=== PATIENT | male | born 1965 | race Caucasian/White ===

== ENCOUNTER 2020-07-14 02:27 | Emergency (ER) | payer MEDICAID ==
[~2020-07-14] VITALS: Ht 188 cm; Wt 129.5 kg
[2020-07-14] MEDS ORDERED: ondansetron/PF 4mg/2ml inj IV ONE ×2 (02:45→04:10)
[2020-07-14 02:47] LABS: CLARITY,URINE CLEAR (Clear); COLOR,URINE YELLOW (Yellow); GLUCOSE, URINE NEGATIVE (Neg); KETONES,URINE NEGATIVE (Neg); LEUKOCYTE ESTERASE ,URINE NEGATIVE (Neg); NITRITES, URINE NEGATIVE (Neg); OCCULT BLOOD,URINE LARGE (Neg); PROTEIN,URINE NEGATIVE (Neg); UROBILINOGEN,URINE 0.2 E.U/dL (0.2-1.0)
[2020-07-14 02:47] LABS: BASOPHILS # (AUTO) 0.1 X10'3 (0-0.2); EOSINOPHILS # (AUTO) 0.1 X10'3 (0-0.9); EOSINOPHILS % (AUTO) 0.8 % (0-6); HEMATOCRIT 38.4 % (42.0-52.0); HEMOGLOBIN 13.2 g/dl (14.0-17.9); LYMPHOCYTES % (AUTO) 12.9 % (21-51); MEAN CORPUSCULAR HEMOGLOBIN 29.8 PG (27.0-31.0); MEAN CORPUSCULAR HGB CONC 34.2 g/dL (33.0-36.5); MEAN CORPUSCULAR VOLUME 87.1 FL (78-98); MEAN PLATELET VOLUME 7.4 FL (7.4-10.4); MONOCYTES # (AUTO) 0.5 X10'3 (0-0.9); MONOCYTES % (AUTO) 6.4 % (2-12); NEUTROPHILS # (AUTO) 6.3 X10'3 (1.8-7.7); NEUTROPHILS % (AUTO) 78.9 % (42-75); PLATELET COUNT 323 X10'3 (140-440); RED BLOOD COUNT 4.41 X10'6 (4.70-6.10); WHITE BLOOD COUNT 7.9 X10'3 (4.5-11.0)
[2020-07-14 02:48] LABS: UA COLLECTION TYPE CLN CATCH MIDSTREAM
[2020-07-14 02:52] LABS: BACTERIA,URINE FEW /HPF (Neg); SQUAMOUS EPITHELIAL CELL,UR MODERATE /LPF (FEW); WBC,URINE 0-4 /HPF (0-4)
[2020-07-14 02:53] LABS: MUCUS STRANDS FEW /LPF (Neg)
[2020-07-14 03:05] LABS: ALANINE AMINOTRANSFERASE 22 U/L (12-78); ALBUMIN 3.6 G/DL (3.4-5.0); ALBUMIN/GLOBULIN RATIO 0.9 (1.1-1.5); ALKALINE PHOSPHATASE 105 IU/L (46-116); ANION GAP 6 (8-16); ASPARTATE AMINO TRANSFERASE 15 U/L (10-37); BILIRUBIN,TOTAL 0.4 MG/DL (0.1-1.0); BLOOD UREA NITROGEN 11 MG/DL (7-18); BUN/CREATININE RATIO 8.9 (5.4-32.0); CALCIUM 8.7 MG/DL (8.5-10.1); CHLORIDE 104 MMOL/L (99-107); CREATININE 1.24 MG/DL (0.60-1.10); GLUCOSE 131 MG/DL (70-104); LIPASE 118 U/L (73-393); POTASSIUM 3.8 MMOL/L (3.5-5.1); SODIUM 137 MMOL/L (135-145); TOTAL CARBON DIOXIDE 26.7 MMOL/L (24-32); TOTAL PROTEIN 7.5 G/DL (6.4-8.2); eGFR 61 ML/MIN
[2020-07-14] MEDS ORDERED: iohexol 300mg/ml 100ml inj. ONE (03:13)
[2020-07-14 03:17] VITALS: BP 133/68
[2020-07-14] MEDS ORDERED: ketorolac tromethamine 15mg/ml inj. IV ONE (03:50)
[2020-07-14] MEDS ORDERED: oxyCODONE/APAP 10/325mg tablet PO ONE (04:10)
[2020-07-14] MEDS ORDERED: OXYC-145 PO (04:12)
[2020-07-14] MEDS ORDERED: ONDA4TAB6 PO (04:12)
[2020-07-14] MEDS ORDERED: IBUP-1985 PO (04:22)
[2020-07-15] MEDS ORDERED: FLO0.4C PO (18:07)
== END 2020-07-14 04:36 | disposition home or self-care (01) ==
LOC: ER 02:28
DX: N20.0 Calculus of kidney (principal); G89.29 Other chronic pain; Z59.0 Homelessness; Z98.890 Other specified postprocedural states; Z88.0 Allergy status to penicillin; Z88.6 Allergy status to analgesic agent; Z79.899 Other long term (current) drug therapy
CPT/HCPCS: 36415; 74177; 80053; 81001; 83690; 85025; 93005; 96374; 96375; 96376; 99285; J1885; J2405; Q9967

== ENCOUNTER 2020-07-15 16:06 | Emergency (ER) | payer MEDICAID ==
[~2020-07-15] VITALS: Ht 188 cm; Wt 126.4 kg
[~2020-07-15 16:06] MED LIST: IBUP-1985 PO; ONDA4TAB6 PO; OXYC-145 PO
[2020-07-15] MEDS ORDERED: ondansetron/PF 4mg/2ml inj IV ONE (16:45)
[2020-07-15] MEDS ORDERED: ketorolac tromethamine 15mg/ml inj. IV ONE (16:45)
[2020-07-15] MEDS ORDERED: morphine 4 MG/ML inj SYRINge IV ONE (16:45)
[2020-07-15] MEDS ORDERED: normal saline 1000ML IV soln IVB ONE (16:45)
[2020-07-15 17:54] LABS: BASOPHILS % (AUTO) 0.6 % (0-1); EOSINOPHILS # (AUTO) 0.2 X10'3 (0-0.9); EOSINOPHILS % (AUTO) 2.3 % (0-6); HEMATOCRIT 36.3 % (42.0-52.0); HEMOGLOBIN 12.5 g/dl (14.0-17.9); LYMPHOCYTES % (AUTO) 12.2 % (21-51); MEAN CORPUSCULAR HEMOGLOBIN 29.9 PG (27.0-31.0); MEAN CORPUSCULAR HGB CONC 34.3 g/dL (33.0-36.5); MEAN CORPUSCULAR VOLUME 87.1 FL (78-98); MEAN PLATELET VOLUME 7.4 FL (7.4-10.4); MONOCYTES # (AUTO) 0.7 X10'3 (0-0.9); MONOCYTES % (AUTO) 8.6 % (2-12); NEUTROPHILS # (AUTO) 6.5 X10'3 (1.8-7.7); NEUTROPHILS % (AUTO) 76.3 % (42-75); PLATELET COUNT 303 X10'3 (140-440); RED BLOOD COUNT 4.17 X10'6 (4.70-6.10); RED CELL DISTRIBUTION WIDTH 13.2 % (11.5-14.5); WHITE BLOOD COUNT 8.5 X10'3 (4.5-11.0)
[2020-07-15 18:00] LABS: ALANINE AMINOTRANSFERASE 16 U/L (12-78); ALBUMIN 3.4 G/DL (3.4-5.0); ALBUMIN/GLOBULIN RATIO 0.9 (1.1-1.5); ALKALINE PHOSPHATASE 95 IU/L (46-116); ANION GAP 5 (8-16); ASPARTATE AMINO TRANSFERASE 11 U/L (10-37); BILIRUBIN,TOTAL 0.5 MG/DL (0.1-1.0); BLOOD UREA NITROGEN 19 MG/DL (7-18); BUN/CREATININE RATIO 11.3 (5.4-32.0); CALCIUM 8.7 MG/DL (8.5-10.1); CHLORIDE 103 MMOL/L (99-107); CREATININE 1.68 MG/DL (0.60-1.10); GLUCOSE 105 MG/DL (70-104); POTASSIUM 3.9 MMOL/L (3.5-5.1); SODIUM 138 MMOL/L (135-145); TOTAL CARBON DIOXIDE 29.7 MMOL/L (24-32); TOTAL PROTEIN 7.4 G/DL (6.4-8.2); eGFR 43 ML/MIN
[2020-07-15] MEDS ORDERED: FLO0.4C PO (18:07)
[2020-07-15 18:11] LABS: CLARITY,URINE CLEAR (Clear); COLOR,URINE YELLOW (Yellow); GLUCOSE, URINE NEGATIVE (Neg); KETONES,URINE NEGATIVE (Neg); LEUKOCYTE ESTERASE ,URINE NEGATIVE (Neg); NITRITES, URINE NEGATIVE (Neg); OCCULT BLOOD,URINE TRACE-LYSED (Neg); PROTEIN,URINE NEGATIVE (Neg); UA COLLECTION TYPE CLN CATCH MIDSTREAM; UROBILINOGEN,URINE 0.2 E.U/dL (0.2-1.0)
[2020-07-15 18:18] LABS: BACTERIA,URINE NONE SEEN /HPF (Neg); MUCUS STRANDS MODERATE /LPF (Neg); RBC,URINE 0-2 /HPF (0-2); SQUAMOUS EPITHELIAL CELL,UR NONE SEEN /LPF (FEW); WBC,URINE 0-4 /HPF (0-4)
[2020-07-15] MEDS ORDERED: tamsulosin 0.4mg capsule PO ONE (18:30)
[2020-07-15 18:49] VITALS: BP 149/76
[2020-07-15] MEDS ORDERED: tamsulosin 0.4mg capsule PO SCH (21:00)
== END 2020-07-15 18:40 | disposition home or self-care (01) ==
LOC: ER 16:06
DX: N23 Unspecified renal colic (principal); G89.29 Other chronic pain; Z98.890 Other specified postprocedural states; Z59.0 Homelessness; Z88.0 Allergy status to penicillin; Z88.8 Allergy status to other drugs, medicaments and biological substances; Z79.899 Other long term (current) drug therapy
CPT/HCPCS: 36415; 76775; 80053; 81001; 85025; 96361; 96374; 96375; 99284; J1885; J2270; J2405; J7030

== ENCOUNTER 2020-07-22 18:09 | Emergency (ER) | payer MEDICAID ==
[~2020-07-22] VITALS: Ht 188 cm; Wt 133.5 kg
[~2020-07-22 18:09] MED LIST changes: +FLO0.4C PO
[2020-07-22 19:23] LABS: CLARITY,URINE SLIGHTLY CLOUDY (Clear); COLOR,URINE YELLOW (Yellow); GLUCOSE, URINE NEGATIVE (Neg); KETONES,URINE NEGATIVE (Neg); LEUKOCYTE ESTERASE ,URINE TRACE (Neg); NITRITES, URINE NEGATIVE (Neg); OCCULT BLOOD,URINE LARGE (Neg); PROTEIN,URINE 30 mg/dl (Neg); UA COLLECTION TYPE CLN CATCH MIDSTREAM; UROBILINOGEN,URINE 0.2 E.U/dL (0.2-1.0)
--- NOTE | 2020-07-22 19:23 | NUR ---
Dr. Zepeda is with the patient at this time.
[2020-07-22 19:31] LABS: BACTERIA,URINE 1+ /HPF (Neg); RBC,URINE 50-100 /HPF (0-2); SQUAMOUS EPITHELIAL CELL,UR FEW /LPF (FEW); WBC,URINE 30-50 /HPF (0-4)
[2020-07-22] MEDS ORDERED: CIPR-230 PO (20:24)
[2020-07-22] MEDS ORDERED: ciprofloxacin 250mg tablet PO ONE (20:25)
[2020-07-22 20:45] VITALS: BP 150/85
== END 2020-07-22 20:44 | disposition home or self-care (01) ==
LOC: ER 18:10
DX: N39.0 Urinary tract infection, site not specified (principal); E11.9 Type 2 diabetes mellitus without complications; G89.29 Other chronic pain; Z87.442 Personal history of urinary calculi; Z98.890 Other specified postprocedural states; Z59.0 Homelessness; Z88.0 Allergy status to penicillin; Z88.8 Allergy status to other drugs, medicaments and biological substances; Z79.899 Other long term (current) drug therapy
CPT/HCPCS: 81001; 87088; 99283

== ENCOUNTER 2020-10-17 12:09 | Emergency (ER) | payer MEDICAID ==
[~2020-10-17] VITALS: Ht 188 cm; Wt 132.0 kg
[~2020-10-17 12:09] MED LIST changes: -FLO0.4C PO
[2020-10-17 12:29] VITALS: BP 139/89
[2020-10-17] MEDS ORDERED: acetaminophen w/codeine (30MG) #3 tablet PO ONE (12:35)
[2020-10-17] MEDS ORDERED: ACET1TAB25 PO (12:51)
[2020-10-17] MEDS ORDERED: ROBCFL PO (12:51)
--- NOTE | 2020-10-19 09:41 | NUR ---
PT CALLED AND NOTIFIED THAT STREP CULTURE WAS POSITIVE AND THAT A NEW MEDICATION HAS BEEN ORDERED. PT REQUESTED THAT RX BE CALLED INTO [facility] ON [address] PREDNISONE 20MG, 3 TABS PO DAILY x5 DAYS, NO REFILLS CALLED INTO [facility] REQUESTED
== END 2020-10-17 13:22 | disposition home or self-care (01) ==
LOC: ER 12:09
DX: U07.1 COVID-19 (principal); Z87.442 Personal history of urinary calculi; M54.9 Dorsalgia, unspecified; G89.29 Other chronic pain; Z88.0 Allergy status to penicillin; Z79.899 Other long term (current) drug therapy; Z59.0 Homelessness
CPT/HCPCS: 87081; 87880; 99283

== ENCOUNTER 2020-11-18 07:18 | Emergency (ER) | payer MEDICAID ==
[~2020-11-18] VITALS: Ht 188 cm; Wt 127.3 kg
[2020-11-18] MEDS ORDERED: ACET-1025 PO (08:04)
[2020-11-18] MEDS ORDERED: acetaminophen 325mg tablet PO ONE (08:05)
== END 2020-11-18 08:44 | disposition home or self-care (01) ==
LOC: ER 07:19
DX: J39.2 Other diseases of pharynx (principal); E11.9 Type 2 diabetes mellitus without complications; G89.29 Other chronic pain; Z87.442 Personal history of urinary calculi; Z98.890 Other specified postprocedural states; Z86.16 Personal history of COVID-19; Z59.0 Homelessness; Z88.0 Allergy status to penicillin; Z88.8 Allergy status to other drugs, medicaments and biological substances; Z79.899 Other long term (current) drug therapy
CPT/HCPCS: 87081; 87880; 99283

== ENCOUNTER 2021-09-01 08:19 | Outpatient (CLI) | payer MEDICAID ==
[~2021-09-01 08:19] MED LIST changes: +ACET-1025 PO
[2021-09-01 08:47] LABS: ABG BASE EXCESS 0.1 mmol/L (-2.0-2.0); ABG HCO3 24.2 mmol/L (22.0-26.0); ABG OXYGEN SATURATION 96.3 % (94-97); ABG PCO2 (T) 37.7 mmHg (35.0-48.0); ABG PO2 (T) 83.8 mmHg (75.0-100.0); ALLEN'S TEST POSITIVE; FCOHb 0.3 % (0.0-3.9); FMetHb 0.3 % (0.0-1.5); FO2Hb 95.7 % (94-97); TOTAL HEMOGLOBIN 13.7 G/dl (14.0-18.0)
== END 2021-09-01 23:59 | disposition home or self-care (01) ==
LOC: RT 08:19
PROVIDERS: ATTEND Student in an Organized Health Care Education/Training Program
DX: R05.9 Cough, unspecified (principal)
CPT/HCPCS: 36600; 82803; 85018; 94010; 94727; 94729

== ENCOUNTER 2025-04-16 10:21 | Emergency (ER) | payer MEDICAID ==
[~2025-04-16] VITALS: Ht 188 cm; Wt 133.4 kg
--- NOTE | 2025-04-16 11:05 | Physician Documentation ---
History of Present Illness General Chief Complaint: Foot pain Stated Complaint: L FOOT PAIN Time Seen by MD: 10:35 Primary Medical Doctor: antwan partida History of Present Illness Initial Comments 59-year-old male insulin-dependent diabetic presents to the emergency department with unresolved left lateral foot ulcer. Reports increased pain. Give himself a trial of antibiotics for a couple of days and presents to the emergency department for additional prescription coverage. He does have scheduled wound care with [facility] he had just needs to call them. States that his blood sugars have been a little difficult to manage. No polyuria polydipsia and/or fever. Medication Reconciliation Allergies: Coded Allergies: Penicillins (Verified Allergy, Unknown, 07/22/20) amitriptyline (Verified Allergy, Unknown, 07/22/20) Scheduled PRN Acetaminophen (Tylenol Extra Strength), 2 TAB PO Q6H PRN PRN for pain or fever Ibuprofen (Ibuprofen), 1 TAB PO Q6H PRN for pain Ondansetron Hcl (Zofran), 1 TAB PO Q6H PRN for nausea/vomiting Oxycodone HCl/Acetaminophen (Percocet 5-325 mg Tablet), 1-2 TABLET PO Q4H PRN for pain Past Medical History Past Medical History: Hernia, Kidney Stones, Diabetes, Chronic Back Pain Past Surgical History: abdominal surgery Other Past Surgical History: Prostate removal, hernia repair surgery Alcohol Use: None Drug Use: none Lives with: S/O Lives In: Homeless Review of Systems All Other Systems at this time: Reviewed and Negative Constitutional: Denies: fever Musc: Reports: swelling Musculoskeletal Lateral foot ulcer Physical Exam Physical Exam Vital Signs: RN Vital Signs have been reviewed: Yes, Temperature: 97.1, Heart Rate: 92, Respiratory Rate: 18, BP: 133/90, Pulse Oximetry: 95, Weight: 133.400 Oxygen Flow Rate: 0 General Appearance: alert, WD/WN, no apparent distress, mild distress Head: normal inspection Face: normal inspection Pupils/EOM/Fundus: PERRLA Neck: full range of motion Respiratory: no respiratory distress Extremities: normal range of motion, other (Toes with flexion contractures, 1- 1/2 cm 100 cm left lateral foot forefoot ulceration without erythema) Neurologic: oriented x4 Psychiatric: normal mood/affect Skin: normal color, warm/dry; No: erythema Progress Results/Orders Results/Orders Orders - NEMO,PURA C PAC Foot, Complete (3vw Min) (04/16/25 11:06) Completed Orders - PURA CHESTER PAC Foot, Complete (3vw Min) (04/16/25 11:06) Vital Signs 04/16/25 04/16/25 10:32 11:28 Temp 97.1 97.1 Pulse 92 76 Resp 18 17 B/P (MAP) 133/90 152/81 (104) Pulse Ox 95 96 O2 Flow Rate 0 0 Medical Decision Making Differential Diagnosis Examination and history consistent with diabetic foot ulcer that warrants further evaluation with a x-ray imaging to evaluate for gas and/or osteo. No obvious gas, foreign body or osteo on prelim x-ray read. We will begin doxycycline have patient follow up with wound care at [facility]. Patient's safely discharged in the emergency department. Advised to continue with diabetic regimen. Departure Disposition: HOME / SELF CARE / HOMELESS Impression: Primary Impression: Diabetic ulcer of left foot Qualified Codes: E11.621 - Type 2 diabetes mellitus with foot ulcer; L97.429 - Non-pressure chronic ulcer of left heel and midfoot with unspecified severi ty Condition: Stable Additional Instructions: Today your x-rays are reassuring for no obvious osteomyelitis, foreign body or gas. Begin antibiotic as directed make follow up appointment with an [facility] wound care for definitive management. Make a follow up appointment with the primary care physician regarding tighter glycemic control and follow up. Thank you for visiting emergency department [facility] Referrals: NO PRIMARY CARE PROVIDER (PCP) Prescriptions Doxycycline Monohydrate (Doxycycline Monohydrate) 100 Mg Capsule 100 MG PO BID, #20 CAP may sub doxycycline hyclate or azithromycin z-pack as prescribed Prov: PURA CHESTER 04/16/25 Education Educated: Patient Educated regarding: diagnosis, treatment Signature Scribe Signature: . Attestation: . PURA CHESTER Apr 16, 2025 11:05
[2025-04-16 11:28] VITALS: TEMP 97.1
[2025-04-16] MEDS ORDERED: DOXY100C43 PO (12:04)
--- NOTE | 2025-04-16 12:11 | RADIOLOGY REPORT ---
EXAM: DI FOOT, COMPLETE (3VW MIN) CLINICAL INDICATION: Diabetic foot ulcer TECHNIQUE: DI FOOT, COMPLETE (3VW MIN) Comparison: None FINDINGS/IMPRESSION: Nondiagnostic examination due to technique. Examination is overly penetrated.
[2025-04-16 12:24] VITALS: BP 140/88; PULSE 54; RESP 16; O2SAT 98
== END 2025-04-16 12:26 | disposition home or self-care (01) ==
LOC: ER 10:22
DX: E11.621 Type 2 diabetes mellitus with foot ulcer (principal); L97.429 Non-pressure chronic ulcer of left heel and midfoot with unspecified severity; Z88.0 Allergy status to penicillin; Z88.8 Allergy status to other drugs, medicaments and biological substances; Z79.4 Long term (current) use of insulin; Z87.442 Personal history of urinary calculi; Z59.00 Homelessness unspecified
CPT/HCPCS: 73630; 99284